=== PATIENT | female | born 1970 | race Caucasian/White ===

== ENCOUNTER → 2023-07-10 | Outpatient (CLI) | payer OTHER ==
[~2023-07-10] MED LIST: Gadoterate 15 ML VIAL IV ONE; NORCO 325 MG-51 TAB PO; ZOFRAN ODT4 MG PO
== END ==
LOC: COL.RAD 06:53
DX: M48.061 Spinal stenosis, lumbar region without neurogenic claudication (principal); Z98.890 Other specified postprocedural states
CPT/HCPCS: A9575